=== PATIENT | male | born 1940 | race Caucasian/White ===

== ENCOUNTER → 2020-08-13 12:43 | Outpatient (BNVA) | payer MEDICARE, SELFPAY | PROVIDERS: Referring Provider Nurse Practitioner Family; Visit Provider Nurse Practitioner Family | DX: M17.11 Unilateral primary osteoarthritis, right knee (principal) | CPT/HCPCS: 73562 ==

== ENCOUNTER 2020-12-04 10:46 | Emergency (ER) | payer MEDICARE, SELFPAY ==
[2020-12-04 12:24] VITALS: BP 154/79; PULSE 56; RESP 18; TEMP 36.6; O2SAT 97; BMI 26.7
[2020-12-04 14:44] LABS: Basophils % 0.6 %; Eosinophils # 0.1 10^3/uL (0.0-0.8); Eosinophils % 0.7 %; Hematocrit 47.1 % (42.0-52.0); Hemoglobin 15.9 g/dL (11.7-16.6); Lymphocytes # 1.2 10^3/uL (0.8-4.8); Lymphocytes % 17.8 %; Mean Corpuscular HGB Conc 33.8 g/dL (30.0-36.0); Mean Corpuscular Hemoglobin 31.4 pg (28.0-34.0); Mean Corpuscular Volume 93.1 fL (80-94); Mean Platelet Volume 9.3 fL (7.4-10.4); Monocytes # 0.6 10^3/uL (0.2-0.9); Monocytes % 8.4 %; Neutrophils # 4.98 10^3/uL (1.8-7.7); Neutrophils % 71.9 %; Nucleated Red Blood Cells % 0 %; Platelet Count 265 10^3/cmm (130-400); Red Blood Count 5.06 10^6/uL (4.1-5.3); Red Cell Distribution Width 12.6 % (12.1-15.1); White Blood Count 6.9 10^3/uL (4.0-10.0)
[2020-12-04 14:53] LABS: Alanine Aminotransferase 22 U/L (0-41); Albumin Level 4.4 g/dL (3.5-5.2); Alkaline Phosphatase 70 IU/L (40-130); Anion Gap 12.1 (5-19); Aspartate Amino Transferase 21 U/L (0-40); Blood Urea Nitrogen 14 mg/dL (8-23); Calcium 9.5 mg/dL (8.5-10.5); Carbon Dioxide 30 mmol/L (22-29); Chloride 98 mmol/L (98-107); Globulin 2.5 g/dL (1.3-4.6); Glucose 142 mg/dL (65-115); Lipase 30 U/L (13-60); Osmolality Calculated 285 mOsm/kg (285-295); Potassium 4.1 mmol/L (3.5-5.1); Sodium 136 mmol/L (136-145); Total Bilirubin 0.6 mg/dL (0.15-1.2); Total Protein 6.9 g/dL (6.6-8.7)
--- NOTE | 2020-12-04 16:32 | XRR_ITS ---
PROCEDURE INFORMATION: Exam: XR Abdomen Exam date and time: 12/04/2020 4:32 PM Age: 80 years old Clinical indication: Bloating and constipation; Prior surgery; Surgery date: 6+ months; Surgery type: Gb; Patient HX: C/O constipation-bloating since 11/21. Abd pain TECHNIQUE: Imaging protocol: XR of the abdomen. Views: 2 Views. Upright and supine views. COMPARISON: No relevant prior studies available. FINDINGS: Gastrointestinal tract: The bowel gas pattern is normal. No intestinal obstruction. No radiographic evidence of constipation. Numerous tiny 1-2 mm radiodensities project in the left aspect of the abdomen and in the pelvis, which are likely located in the intestine lumen. Intraperitoneal space: No free air is detected. Organs: Cholecystectomy clips are noted. Vasculature: Arterial calcifications are appreciated. Multiple phleboliths are present in the pelvis. Bones/joints: [id number] degenerative changes are seen in the lower lumbar spine. No acute fracture. XR/XR abdomen min 2V [id number] IMPRESSION: 1. No acute abnormality is seen. No intestinal obstruction. 2. Atherosclerosis.
--- NOTE | 2020-12-04 16:36 | W.ED.ABDPA2 ---
HPI - Abdominal Pain General: Chief Complaint: Abdominal Pain Stated Complaint: ABD PAIN Time Seen by Provider: 12/04/20 16:29 History of Present Illness: HPI narrative: This patient is a 80-year-old male who presents to the emergency department with complaint of constipation and abdominal bloating since the . Patient has been take a lot of laxatives for but very little results. Patient was seen by his primary care physician 2 days ago for the same states had a negative evaluation. Patient states still feels bloated. Will do medical evaluation treat as needed Pertinent past history: constipation and gastritis Pain Consistency: constant Location: Diffuse Severity: moderate Quality: fullness Radiation: none Migration to: no migration Associated Symptoms: Reports constipation; Denies chills, dysuria, fever(s), nausea and vomiting Review of Systems General: Reports: 10 or more systems reviewed and unremarkable except in HPI and below Const: Denies: fever(s), chills, body aches or fatigue Eyes: Denies: change in vision or blurry vision ENMT: Denies: throat pain, hoarseness or mouth pain Card: Denies: chest pain, palpitations, irregular heart rhythm, edema, swelling of feet/ankles or lightheadedness Resp: Denies: dyspnea, productive cough, non-productive cough, wheezing or pain on inspiration GI: Reports: constipation; Denies: abdominal pain, nausea or vomiting : Denies: flank pain, dysuria, urinary frequency, urinary urgency or urinary hesitancy Musc: Denies: neck pain, back pain, extremity pain, extremity swelling, joint pain, joint swelling, joint redness, joint warmth or limited range of motion Skin/Breast: Denies: rash, pruritus, erythema or skin tenderness Neuro: Denies: headache(s), numbness in extremities or weakness in extremities Psych: Denies: anxiety or depression PFS ED PFSH: Social History Smoking and tobacco status: never smoked Alcohol intake: never Physical Exam Const: COMMON NORMALS: no acute distress, average body habitus, patient oriented x3, no limitations, healthy appearing, alert and well nourished HENMT: COMMON NORMALS: normocephalic, atraumatic, hearing grossly normal bilaterally, external ears normal, EAC's normal, TM's normal bilaterally, Normal external nose present, Normal nasal mucous membranes and turbinates present, moist oral mucous membranes, oropharynx normal, dentition normal and gingiva normal HEAD & SCALP: normocephalic and atraumatic NOSE: Normal external nose present and Normal nasal mucous membranes and turbinates present EXTERNAL EAR: Yes external ears normal EXTERNAL AUDITORY CANAL: EAC's normal TYMPANIC MEMBRANE: TM's normal bilaterally Neck/C-Spine: COMMON NORMALS: full ROM, no lymphadenopathy, supple, no meningeal signs, no JVD, Thyroid normal and No carotid bruits THYROID: Thyroid normal Chest: COMMONS NORMALS: normal inspection of the chest, normal palpation of entire chest wall, normal inspection of the breasts and normal palpation of the breasts Breast/axilla inspection: Yes normal inspection of the breasts BREAST/AXILLA PALPATION: Yes normal palpation of the breasts Resp: COMMON NORMALS: normal respiratory effort, No retractions, No use of accessory muscles, clear to auscultation bilaterally and percussion normal AUSCULTATION: clear to auscultation bilaterally PERCUSSION: percussion normal Cardio: COMMON NORMALS: no JVD, regular rate, regular rhythm, S1 normal heart sound present, S2 normal heart sound present, No gallops present (Cardio), No clicks present (Cardio), No murmurs present (Cardio), No rub (Cardio) and Peripheral pulses 2+ throughout RATE: regular rate RHYTHM: regular rhythm HEART SOUNDS: S1 normal heart sound present and S2 normal heart sound present PERIPHERAL PULSES: Peripheral pulses 2+ throughout GI: COMMON NORMALS: Normal to inspection, nondistended, normoactive bowel sounds present, Soft to palpation, non-tender, No hepatosplenomegaly present, no masses and no bruits PALPATION: Yes Soft to palpation and Yes No hepatosplenomegaly present : COMMON NORMALS: Yes no CVA tenderness BLADDER/KIDNEY EXAM: Yes no CVA tenderness Back/Pelvis: COMMON NORMALS: no CVA tenderness, thoracic and lumbar spine normal to inspection, no thoracic nor lumbar tenderness, thoraco-lumbar ROM normal and straight leg raise negative bilaterally Extremity: COMMON NORMALS: normal to inspection, full ROM, capillary refill normal, no joint enlargement, no clubbing, cyanosis or edema, no calf tenderness and no pedal edema Neuro: COMMON NORMALS: patient oriented x3 SENSORIUM/ORIENTATION: Yes alert MENINGEAL SIGNS: Yes no meningeal signs Course Reevaluation(s): Reevaluation #1: Negative evaluation in the emergency department any acute findings. Patient will be discharged home the following instructions. Encourage p.o. fluids. May continue MiraLAX daily as previously prescribed. Mix the following. 4 ounces of prune juice with 2 ounces of milk of magnesium and 2 tablespoons of salted butter. Heat in the microwave for 15 minutes*and serve warm. Drink this once daily to help relieve constipation. You have also been written prescription for Bentyl to help with bloating. Follow-up with primary care physician in 2 to 3 days. Also discuss with your family doctor about needing an outpatient EGD and colonoscopy. Time: 17:36 Vital Signs: Vital signs: Vital Signs Temperature 97.8 F 12/04/20 12:24 Pulse Rate 56 L 12/04/20 12:24 Respiratory Rate 18 12/04/20 12:24 Blood Pressure 154/79 12/04/20 12:24 Pulse Oximetry 97 12/04/20 12:24 MDM - Abdominal Pain MDM Narrative: Medical decision making narrative: This patient is a 80-year-old male who presents to the emergency department with complaint of constipation and abdominal bloating since the . Patient has been take a lot of laxatives for but very little results. Patient was seen by his primary care physician 2 days ago for the same states had a negative evaluation. Patient states still feels bloated. Will do medical evaluation treat as needed Negative evaluation in the emergency department any acute findings. Patient will be discharged home the following instructions. Encourage p.o. fluids. May continue MiraLAX daily as previously prescribed. Mix the following. 4 ounces of prune juice with 2 ounces of milk of magnesium and 2 tablespoons of salted butter. Heat in the microwave for 15 minutes*and serve warm. Drink this once daily to help relieve constipation. You have also been written prescription for Bentyl to help with bloating. Follow-up with primary care physician in 2 to 3 days. Also discuss with your family doctor about needing an outpatient EGD and colonoscopy. Differential Diagnosis: Differential diagnosis abdominal pain: Likely abdominal pain Medical Records: Attestation: I reviewed the patient's medical records. Lab Data: Attestation: I reviewed the patient's lab results. Labs: Lab Results 12/04/20 12/04/20 Range/Units 14:25 14:25 WBC 6.9 (4.0-10.0) 10^3/ uL RBC 5.06 (4.1-5.3) 10^6/u L Hgb 15.9 (11.7-16.6) g/dL Hct 47.1 (42.0-52.0) % MCV 93.1 (80-94) fL MCH 31.4 (28.0-34.0) pg MCHC 33.8 (30.0-36.0) g/dL RDW 12.6 (12.1-15.1) % Plt Count 265 (130-400) 10^3/c mm MPV 9.3 (7.4-10.4) fL Neut % (Auto) 71.9 % Lymph % (Auto) 17.8 % [place]ata % (Auto) 8.4 % Eos % (Auto) 0.7 % Baso % (Auto) 0.6 % Neut # (Auto) 4.98 (1.8-7.7) 10^3/u L Lymph # (Auto) 1.2 (0.8-4.8) 10^3/u L [place]ata # (Auto) 0.6 (0.2-0.9) 10^3/u L Eos # (Auto) 0.1 (0.0-0.8) 10^3/u L Baso # (Auto) 0.0 (0.0-0.1) 10^3/u L Nucleated RBC % (a uto) 0 % Nucleated RBCs # 0.0 /100WBC Sodium 136 (136-145) mmol/L Potassium 4.1 (3.5-5.1) mmol/L Chloride 98 (98-107) mmol/L Carbon Dioxide 30 H (22-29) mmol/L Anion Gap 12.1 (5-19) BUN 14 (8-23) mg/dL Creatinine 0.8 (0.7-1.2) mg/dL GFR Calculation Not Reportable Glucose 142 H (65-115) mg/dL Calculated Osmolal ity 285 (285-295) mOsm/k g Calcium 9.5 (8.5-10.5) mg/dL Total Bilirubin 0.6 (0.15-1.2) mg/dL AST 21 (0-40) U/L ALT 22 (0-41) U/L Alkaline Phosphata se 70 (40-130) IU/L Total Protein 6.9 (6.6-8.7) g/dL Albumin 4.4 (3.5-5.2) g/dL Globulin 2.5 (1.3-4.6) g/dL Lipase 30 (13-60) U/L Imaging Data ^: KUB: Attestation: I personally reviewed and interpreted this imaging study as follows: Discharge Plan Discharge Patient Disposition: Home Clinical Impression: Constipation, Bloating Condition: Stable Prescriptions: New dicyclomine 20 mg tablet 20 mg PO TID Qty: 30 RF: 0 No Action levothyroxine 100 mcg capsule 100 mcg PO DAILY RF: 0 amlodipine 5 mg tablet 5 mg PO DAILY RF: 0 simvastatin 40 mg tablet 40 mg PO DAILY RF: 0 omeprazole 20 mg capsule,delayed release(DR/EC) 20 mg PO DAILY RF: 0 carvedilol 6.25 mg tablet 6.25 mg PO DAILY RF: 0 meloxicam 15 mg tablet 15 mg PO DAILY RF: 0 glimepiride 1 mg tablet 1 mg PO DAILY RF: 0 alprazolam 0.25 mg tablet 0.25 mg PO TID RF: 0 montelukast 10 mg tablet 10 mg PO DAILY RF: 0 diclofenac sodium 1 % gel 4 g TOPICAL QID RF: 0 Discharge Orders: Discharge ED (Routine); Ordered 12/04/20 Ordered By: Adan Peters Referrals: Brionna Sharma [Primary Care Provider] - Discharge Diet: Advance as tolerated Discharge Activity: Resume usual activity Patient Instructions: Opioid Safety Activity Restrictions/Additional Instructions: Encourage p.o. fluids. May continue MiraLAX daily as previously prescribed. Mix the following. 4 ounces of prune juice with 2 ounces of milk of magnesium and 2 tablespoons of salted butter. Heat in the microwave for 15 minutes*and serve warm. Drink this once daily to help relieve constipation. You have also been written prescription for Bentyl to help with bloating. Follow-up with primary care physician in 2 to 3 days. Also discuss with your family doctor about needing an outpatient EGD and colonoscopy. Coding Level of Care Code ED Director Diabetes for Chg Fwd Exam Comprehensive
[2020-12-04 17:57] VITALS: RESP 18; TEMP 36.6; O2SAT 97
== END 2020-12-04 17:57 | disposition home or self-care (01) ==
PROVIDERS: Physician Assistant; Emergency Provider Emergency Medicine; PCP Nurse Practitioner Family
DX: K59.00 Constipation, unspecified (principal)
CPT/HCPCS: 74019; 80053; 83690; 85025; 99282

== ENCOUNTER 2020-12-09 07:58 | Outpatient (CLI) | payer MEDICARE, SELFPAY ==
--- NOTE | 2020-12-09 08:05 | CT_ITS ---
WS: [id number] CT scan of the abdomen and pelvis with Oral and without IV contrast. Additional two-dimensional coron al and sagittal reconstruction was performed. 12/09/2020 Clinical Data: GENERALIZED ABDOMINAL PAIN, BLOATING Comparison: None. DLP: 872.[address] scans at [facility] use at least one of these dose optimization techniques: automat ed exposure control; mA and/or kV adjustment per patient size (includes targeted exams where dose is matched to clinical indication); or iterative reconstruction. Findings: The lower lungs show no nodules, masses or effusions. There is coronary artery calcification and a sm all hiatal hernia. The liver, spleen, adrenal glands and pancreas are normal. The gallbladder fossa has clips from a ch olecystectomy. The kidneys show no masses or hydronephrosis. There is a low density anterior structur e in the right kidney measuring 3.0 cm which is probably a cyst. There is a central nonobstructing ri ght renal calculus but none on the left. The abdominal aorta is normal in size with calcification in the wall and calcification in the distal branches. No appendicitis or diverticulitis is seen. Oral contrast is in the stomach, small bowel and colon and there is no bowel dilatation. No abscess, adenopathy, ascites, mass, obstruction or free air is seen . The bladder is unremarkable. The prostate is enlarged. No inguinal hernia is seen. 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 CT/CT abdomen pelvis wo con [id number] Impression: Negative for acute intra-abdominal or pelvic abnormalities.
[2020-12-09] MEDS: iohexol 300 mg/mL 50 mL Btl PO (09:38)
== END 2020-12-09 07:59 | disposition home or self-care (01) ==
PROVIDERS: PCP Nurse Practitioner Family; Visit Provider Nurse Practitioner Family
DX: R10.9 Unspecified abdominal pain (principal); R14.0 Abdominal distension (gaseous)
CPT/HCPCS: 74176; Q9967

== ENCOUNTER → 2022-05-26 14:13 | Outpatient (BNVA) | payer MEDICARE, SELFPAY | PROVIDERS: PCP Nurse Practitioner Family; Visit Provider Nurse Practitioner Family | DX: M25.512 Pain in left shoulder (principal) | CPT/HCPCS: 73030 ==

== ENCOUNTER → 2023-05-07 11:53 | Outpatient (BNVA) | payer MEDICARE, SELFPAY | PROVIDERS: PCP Nurse Practitioner Family; Visit Provider Emergency Medicine | DX: R68.89 Other general symptoms and signs (principal) | CPT/HCPCS: 87400; 87426 ==

== ENCOUNTER 2024-12-15 16:01 | Emergency (ER) | payer MEDICARE, SELFPAY ==
--- OUTSIDE RECORDS SUMMARY | 2024-12-15 16:07 | XMS_ITS | Clinical Summary ---
Author Organization [facility] Address [address] 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
--- OUTSIDE RECORDS SUMMARY | 2024-12-15 16:07 | XMS_ITS | Encounter Summary ---
[facility] Organization [facility] Address [address] [place] [address] Care Team Providers Care Coordinator Of Placement Name Role Phone Unavailable Primary Care Provider Unavailabl e Encounter Details Date Type Department Care Team (Late st Contact Info) Description 07/15/2002 Inpatient Historical HIS IN BED Juancarlos Cates MD [address] [place] [address] ACUTE PANCREATITIS (Primary Dx) Social History Tobacco Use Types Packs/Day Years Used Date Smoking Tobacco: Never Assessed Sex and Gender Information Value Date Recorded Sex Assigned at Not on file 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
[2024-12-15 16:09] VITALS: BP 171/75; PULSE 73; RESP 17; TEMP 36.6; O2SAT 98; BMI 27.8
--- NOTE | 2024-12-15 16:18 | CTR_ITS ---
PROCEDURE INFORMATION: Exam: CT Head Without Contrast Exam date and time: 12/15/2024 4:30 PM Age: 84 years old Clinical indication: Injury or trauma; Fall; Blunt trauma (contusions or hematomas); Additional info: Fall, head injury TECHNIQUE: Imaging protocol: Computed tomography of the head without contrast. Radiation optimization: All CT scans at this facility use at least one of these dose optimization techniques: automated exposure control; mA and/or kV adjustment per patient size (includes targeted exams where dose is matched to clinical indication); or iterative reconstruction. COMPARISON: No relevant prior studies available. RADIATION DOSE METRICS: Total DLP (mGy-cm): 999.48 FINDINGS: Brain: Mild atrophic changes. Areas of decreased periventricular and subcortical white matter density consistent with chronic ischemic changes. Normal ruiz-white matter differentiation. No evidence of acute intracranial hemorrhage or mass. Calcification cavernous portions of the internal carotid arteries. Calcification vertebral arteries. Dominant left vertebral artery. Falx ossification. Cerebral ventricles: Proportionate to sulci. Paranasal sinuses: Visualized sinuses are unremarkable. No fluid levels. Mastoid air cells: Visualized mastoid air cells are well aerated. Bones: Unremarkable. No acute fracture. Soft tissues: Unremarkable. CT/CT head wo con* [id number] IMPRESSION: Atrophic changes, chronic ischemic changes without acute appearing intracranial abnormality. Vascular calcification.
--- NOTE | 2024-12-15 16:18 | W.ED.HEATRA ---
HPI - Head Injury General: Chief complaint: Head Injury Stated complaint: fall hit head hard dizzy and pain Time Seen by Provider: 12/15/24 16:15 History of Present Illness: 84-year-old man with a history of atrial fibrillation on chronic anticoagulation on Eliquis, hypertension, hypothyroidism and diabetes who presents emergency room after he had a fall. He was trying to change up the food for his hummingbird's and lost his balance and fell. He hit his head on some sort of yard ornament. No loss of consciousness. No altered mental status. No focal motor deficits. He does say he has been feeling a bit dizzy and has had a bit of a headache. He has a bump on the back of his head Related Data Home Medications ?Medication ?Instructions ?Recorded ?Confirmed amlodipine 5 mg tablet 5 mg PO DAILY 07/03/19 09/30/23 levothyroxine 100 mcg capsule 100 mcg PO DAILY 07/03/19 09/30/23 omeprazole 20 mg capsule,delayed 20 mg PO DAILY 07/03/19 09/30/23 release simvastatin 40 mg tablet 40 mg PO DAILY 07/03/19 09/30/23 alprazolam 0.25 mg tablet 0.25 mg PO TID 12/04/20 09/30/23 carvedilol 6.25 mg tablet 6.25 mg PO DAILY 12/04/20 09/30/23 diclofenac sodium 1 % topical gel 4 g topical QID 12/04/20 09/30/23 glimepiride 1 mg tablet 1 mg PO DAILY 12/04/20 09/30/23 meloxicam 15 mg tablet 15 mg PO DAILY 12/04/20 09/30/23 montelukast 10 mg tablet 10 mg PO DAILY 12/04/20 09/30/23 Previous Rx's ?Medication ?Instructions ?Recorded dicyclomine 20 mg tablet 20 mg PO TID #30 tabs 12/04/20 oseltamivir 75 mg capsule (Tamiflu) 75 mg PO BID 5 days #10 caps 05/07/23 azithromycin 250 mg tablet See Rx Instructions PO .COMPLEX #6 09/30/23 tabs leqvlneijrfslud-mdnqrnnkryycpyk-TP 5 ml PO Q6H PRN cold symptoms #118 09/30/23 2 mg-30 mg-10 mg/5 mL oral syrup mL (Bromfed DM) dexamethasone 2 mg tablet 6 mg (3 x 2 mg) PO DAILY 5 days 09/30/23 #15 tabs Allergies Allergy/AdvReac Type Severity Reaction Status Date / Time Penicillins AdvReac Mild ADR-Itching Verified 09/30/23 13:17 Review of Systems Narrative: Constitutional symptoms: Negative except as documented in HPI. Skin symptoms: Negative except as documented in HPI. Eye symptoms: Negative except as documented in HPI. ENMT symptoms: Negative except as documented in HPI. Respiratory symptoms: Negative except as documented in HPI. Cardiovascular symptoms: Negative except as documented in HPI. Gastrointestinal symptoms: Negative except as documented in HPI. Genitourinary symptoms: Negative except as documented in HPI. Musculoskeletal symptoms: Negative except as documented in HPI. Neurologic symptoms: Negative except as documented in HPI. Psychiatric symptoms: Negative except as documented in HPI. Endocrine symptoms: Negative except as documented in HPI. PFSH ED PFSH: Social History Smoking and tobacco/nicotine status: never used tobacco/nicotine Alcohol intake: never Substance/Drug Use: never Physical Exam Narrative: EXAM NARRATIVE: General: Alert, no acute distress. Skin: warm and dry Head: Normocephalic, small hematoma in the occipital area. Neck: Trachea midline Eye: Extraocular movements are intact. Ears, nose, mouth and throat: Oral mucosa moist Respiratory: Respirations are non-labored Musculoskeletal: Normal ROM Gastrointestinal: Abdomen does not appear distended Neurological: Alert and oriented, No focal neurological deficit observed. Psychiatric: Cooperative, appropriate mood & affect. Course Vital Signs: Vital signs: Vital Signs Temperature 97.9 F 12/15/24 16:09 Pulse Rate 72 12/15/24 17:06 Respiratory Rate 16 12/15/24 17:06 Blood Pressure 146/91 12/15/24 17:06 Pulse Oximetry 96 12/15/24 17:06 Oxygen Delivery Me thod Room Air 12/15/24 17:06 MDM - Head Injury Medcial Decision Making Medical decision making: Differential diagnosis including but not limited to and based on the above HPI, review of systems and physical exam: patient with fall and head injury. Subdural hematoma, subarachnoid hemorrhage, concussion, skull fracture. Orders placed to evaluate differential diagnosis based on the above differential, HPI and physical exam CT scan of the head was ordered. CT head: No acute intracranial process. no intracranial hemorrhage, no evidence of infarct. no evidence of acute fracture.This was reviewed and interpreted by myself the ER physician. I reviewed the patient's medical record. Assessment and plan: Fall Head injury Chronic anticoagulation - Discharged home - Discussed plan with patient. Answered any questions. - Evaluation and treatment of this problem were appropriate in the emergency setting. Lab Data Radiology Impressions Head CT 12/15/24 16:18 IMPRESSION: Atrophic changes, chronic ischemic changes without acute appearing intracranial abnormality. Vascular calcification. All radiology interpretation(s) finalized by discharge Discharge Plan Discharge Patient Disposition: Home Clinical Impression: Closed head injury, Chronic anticoagulation, Fall from ground level Condition: Stable Prescriptions: No Action levothyroxine 100 mcg capsule 100 mcg PO DAILY amlodipine 5 mg tablet 5 mg PO DAILY simvastatin 40 mg tablet 40 mg PO DAILY omeprazole 20 mg capsule,delayed release(DR/EC) 20 mg PO DAILY oseltamivir [Tamiflu] 75 mg capsule 75 mg PO BID 5 Days Qty: 10 0RF azithromycin 250 mg tablet See Rx Instructions PO .COMPLEX Qty: 6 0RF Rx Instructions: take 2 tablets today (day 1), then one tablet for 4 days (days 2-5) PO tshckssbpsuxnto-drqbaokcv-OT [Bromfed DM] 2-30-10 mg/5 mL syrup 5 ml PO Q6H PRN (Reason: cold symptoms) Qty: 118 0RF dexamethasone 2 mg tablet 6 mg PO DAILY 5 Days Qty: 15 0RF carvedilol 6.25 mg tablet 6.25 mg PO DAILY meloxicam 15 mg tablet 15 mg PO DAILY Rx Instructions: TAKE WITH FOOD glimepiride 1 mg tablet 1 mg PO DAILY alprazolam 0.25 mg tablet 0.25 mg PO TID montelukast 10 mg tablet 10 mg PO DAILY diclofenac sodium 1 % gel 4 g TOPICAL QID dicyclomine 20 mg tablet 20 mg PO TID Qty: 30 0RF Discharge Orders: Discharge ED (Routine); Ordered 12/15/24 Ordered By: Ida Orr Referrals: Brionna Sharma [Primary Care Provider, Family Practice] Discharge Diet: Usual diet Discharge Activity: Increase activity as tolerated Patient Instructions: Fall Prevention for Older Adults (ED), Opioid Safety, Pain Management, Patient Portal & [place] Instructions Activity Restrictions/Additional Instructions: Thank you for choosing [facility] for your healthcare needs today. You have been screened and evaluated and felt safe for discharge. Health conditions do change or evolve sometimes and as such it is important that you follow up with your Primary Doctor to be re checked, 3-5 days is a general good time frame for follow up. You are always welcome to return to the ED for re assessment if your symptoms are worsening or you have new concerns Print Language: South Sudanese Coding Level of Care Code ED Scientific Manager for Padmini Myers
[2024-12-15 17:06] VITALS: BP 146/91; PULSE 72; RESP 16; O2SAT 96
[2024-12-15 17:35] VITALS: BP 168/85; PULSE 74; O2SAT 97
== END 2024-12-15 17:38 | disposition home or self-care (01) ==
PROVIDERS: Emergency Provider Emergency Medicine; PCP Nurse Practitioner Family
DX: S09.8XXA Other specified injuries of head, initial encounter (principal); Z79.01 Long term (current) use of anticoagulants; W18.30XA Fall on same level, unspecified, initial encounter; I10 Essential (primary) hypertension; E11.9 Type 2 diabetes mellitus without complications
CPT/HCPCS: 70450; 99284